=== PATIENT | male | born 1960 | race Caucasian/White ===

== ENCOUNTER → 2023-09-03 | Outpatient (REF) | payer BC, MEDICARE | LOC: M SFHCDERM 17:26 | PROVIDERS: ATTEND Nurse Practitioner Family | DX: L82.0 Inflamed seborrheic keratosis (principal) ==

== ENCOUNTER → 2024-03-17 | Outpatient (REF) | payer BC, MEDICARE | LOC: M SFHCDERM 17:58 | PROVIDERS: ATTEND Nurse Practitioner Family | DX: L57.0 Actinic keratosis (principal); L57.8 Other skin changes due to chronic exposure to nonionizing radiation ==

== ENCOUNTER → 2024-09-04 | Outpatient (CLI) | payer MEDICARE | LOC: M WHC 14:03 | PROVIDERS: ATTEND Family Medicine | DX: M85.80 Other specified disorders of bone density and structure, unspecified site (principal); Z78.0 Asymptomatic menopausal state ==

== ENCOUNTER → 2024-09-15 | Outpatient (REF) | payer MEDICARE | LOC: M SFHCDERM 17:22 | PROVIDERS: ATTEND Nurse Practitioner Family | DX: B07.8 Other viral warts (principal) ==